=== PATIENT | male | born 1940 | race Caucasian/White ===

== ENCOUNTER 2019-01-26 06:31 | Inpatient (IN) | payer MEDICARE ==
[2019-01-26 07:05] LABS: #Basophils 0.1 thou/uL (0.0-0.2); #Eosinphils 0.4 thou/uL (0.0-0.7); #Lymphocytes 2.6 thou/uL (1.20-3.40); #Neutrophils 6.6 thou/uL (1.40-6.50); %Eosinophils 3.8 % (0.0-10.0); %Lymphocytes 24.4 % (21.0-51.0); %Monocytes 8.9 % (0.0-10.0); %Neutrophils 61.9 % (42.0-75.0); Hemoglobin 14.1 g/dL (14.0-18.0); Mean Corpuscular Hemoglobin 30.3 pg (27.0-31.0); Mean Corpuscular Volume 91.9 fL (78.0-98.0); Mean Platelet Volume 9.3 fL (7.4-10.4); Platelet Count 131 thou/uL (130-400); Red Blood Cell (RBC) Count 4.65 mill/uL (4.70-6.10); White Blood Cell (WBC) Count 10.7 thou/uL (4.8-10.8)
[2019-01-26] MEDS ORDERED: Aspirin Chewable 81 MG TAB ONE (07:10)
[2019-01-26] MEDS ORDERED: Nitroglycerin 2% Ointment 1 INCH/1 GM Packet ONE (07:10)
[2019-01-26 07:28] LABS: ALT (SGPT) 21 U/L (8-55); AST (SGOT) 18 U/L (5-34); Albumin 4.4 g/dL (3.4-4.8); Alkaline Phosphatase 56 U/L (40-150); Anion Gap 14 mmol/L (10-20); BUN (Urea Nitrogen) 17 mg/dL (8.4-25.7); Bilirubin, Total 0.6 mg/dL (0.2-1.2); CK (CPK) 111 U/L (30-200); Calc. Creatinine Clearance 0 mL/min (70-130); Calcium 9.5 mg/dL (7.8-10.44); Carbon Dioxide 24 mmol/L (23-31); Chloride 107 mmol/L (98-107); Estimated GFR-MDRD 54; Globulin 3.3 g/dL (2.4-3.5); Glucose 100 mg/dL (83-110); Lipase 29 U/L (8-78); Potassium 3.6 mmol/L (3.5-5.1); Protein, Total 7.7 g/dL (5.8-8.1); Sodium 141 mmol/L (136-145)
--- NOTE | 2019-01-26 07:35 | RAD ---
FRadiograph chest one view: HISTORY: 79-year-old male with chest pain COMPARISON: None FINDINGS: Mild fluid in pulmonary septa at the mid and lower lung zones. Cardiac size at upper limits of normal or mildly enlarged. Signs of previous CABG. Left subclavian multilead pacemaker. No pneumothorax or consolidation. IMPRESSION: Mild pulmonary interstitial edema, evidence for mild congestive heart failure.
[2019-01-26] MEDS ORDERED: Enoxaparin Sodium 80 MG/0.8 ML SYRINGE ONE (07:43)
[2019-01-26 07:53] LABS: CKMB 5.7 ng/mL (0-6.6)
[2019-01-26] MEDS ORDERED: Ondansetron PF 4 MG/2 ML Vial IVP PRN (09:55)
[2019-01-26] MEDS ORDERED: Ondansetron ODT 4 MG TAB PO PRN (09:56)
[2019-01-26] MEDS ORDERED: Sodium Chloride 0.9% 1,000 ML IV SCH (10:00)
[2019-01-26 10:19] LABS: Troponin I 0.505 ng/mL (< 0.028)
[2019-01-26 10:28] VITALS: BMI 26.4
[2019-01-26] MEDS ORDERED: Enoxaparin Sodium 80 MG/0.8 ML SYRINGE SC SCH ×2 (10:53→11:15)
[2019-01-26] MEDS ORDERED: Nitroglycerin 0.4 MG TAB (25 Tab Bottle) SL PRN (10:54)
[2019-01-26] MEDS ORDERED: Dextrose 5% in Water 1,000 ML IV PRN (10:57)
[2019-01-26] MEDS ORDERED: Dextrose 50% Abboject 50 ML SYRINGE SLOW IVP PRN (10:57)
[2019-01-26] MEDS ORDERED: HumaLOG 300 UNITS/3 ML VIAL SC PRN (10:57)
[2019-01-26 12:40] LABS: Hemoglobin A1c 5.6 % (4.0-6.0)
[2019-01-26 13:05] LABS: Troponin I 0.701 ng/mL (< 0.028)
[2019-01-26 17:31] LABS: Hemoglobin 12.9 g/dL (14.0-18.0); Platelet Count 115 thou/uL (130-400)
--- NOTE | 2019-01-26 17:33 | HP ---
CHIEF COMPLAINT: Chest pain. HISTORY OF PRESENT ILLNESS: The patient is a very pleasant 79-year-old male with a past medical history of CAD, hypertension, hyperlipidemia, diabetes, who presents to the hospital with complaints of chest pain. The patient states that for the past few months to years, he has been having chest pressure on walking about 3/4 of a mile. 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 The patient stated that his stress test was done about 5 to 6 months ago, stated that he did have some blockage and recommended medical management. This is per patient and I do not have his stress test results to review. The patient states that for the past few days, he has been having significant chest tightness on exertion which is relieved with rest. The patient denies any radiation of his chest pressure. The patient then states that last night, he woke up with chest tightness which concerned him. He took nitroglycerin and took some Plavix, and then came into the ER for further evaluation. The patient stated that his chest tightness improved when he presented to the hospital. He denies any fevers or chills. He denies any shortness of breath and also prior to coming to the hospital, the patient has been having chest pain on minimal exertion that is walking in his home, which is not usual. PAST MEDICAL HISTORY: 1. He has a history of CAD. 2. Diabetes type 2. 3. Hyperlipidemia. 4. Hypertension. 5. GERD. PAST SURGICAL HISTORY: He has had a tonsillectomy, hernia repair, hemorrhoids. He has had a pacemaker for arrhythmia in 1995. He has also had CABG in 2000 and he has had 4 stents. ALLERGIES: HE HAS NO KNOWN ALLERGIES. MEDICATIONS: As the following. He is on: 1. Clopidogrel 75 mg daily. 2. Atenolol. 3. Metformin. 4. Glipizide. 5. Benazepril. 6. Aspirin 81 mg. 7. Simvastatin. 8. Amlodipine. 9. Tamsulosin. 10. Isosorbide. 11. Nexium. SOCIAL HISTORY: He has no alcohol use, tobacco use, or drug use. He is a full code. The patient lives with his . FAMILY HISTORY: Father had MA at the age of 66. Mother has been pretty healthy. Brother had an MA at the age of 81. REVIEW OF SYSTEMS: All negative except for the ones mentioned above in the HPI. PHYSICAL EXAMINATION: VITAL SIGNS: 97.7, 74, 18 respiration, 97% on room air, 131/71. GENERAL: He is awake, alert, and oriented x3. Does not appear in any distress. HEENT: Normocephalic, atraumatic. No lymphadenopathy noted. Pupils are equal and reactive to light. CV: S1 and S2 present. No murmurs, rubs, or gallops. He does have a pacemaker. His pacemaker site appears to be stable. LUNGS: Clear to auscultation. No rhonchi or wheezes noted. ABDOMEN: Soft, nontender. Bowel sounds are present x2. EXTREMITIES: No edema. Pedal pulses are present x2. NEUROLOGIC: No focal deficits noted. SKIN: No cuts or lesions noted. LABORATORY RESULTS: As of the following; sodium of 141, potassium of 3.6, BUN of 17, creatinine 1.28. His CK is 5.7, troponin initially was 0.3. CBC; WBCs of 10.7, hemoglobin of 14.1, hematocrit of 42.7, and platelets of 131. His EKG indicated a paced rhythm. His chest x-ray did indicate just mild pulmonary interstitial edema. His BNP was mildly elevated at 210. ASSESSMENT AND PLAN: The patient is an 79-year-old male, who presents to the hospital with complaints of chest pain. 1. Unstable angina. The patient has elevated troponins. He did have significant pain initially on minimal exertion. However, this time, he had pain at rest. We will start the patient on Lovenox and also Plavix and statin. We will check a lipid panel in the morning. We will check his hemoglobin A1c. Cardiology has been notified. We will keep the patient n.p.o. for possible cardiac cath today. If they decide not to, we will feed him and keep n.p.o. after midnight. 2. History of hypertension. We will continue his home medications. 3. History of diabetes. We will put him on Accu-Cheks before meals and at bedtime, and put him on a sliding scale. We will hold his metformin and glyburide. 4. Reflux. We will continue his home medications. 5. Deep venous thrombosis prophylaxis. The patient is already on subcu Lovenox. Job ID: [id number]
--- NOTE | 2019-01-26 20:54 | CON ---
DATE OF CONSULTATION: 01/26/2019 REASON FOR CONSULTATION: Unstable angina. PRIMARY PADDER CUSHION: Dr. Jacky Mckinley. HISTORY OF PRESENT ILLNESS: Mr. Floyd is a very pleasant 79-year-old gentleman with a previous history of CAD, status post bypass surgery in 2000. He states over the last several weeks, he has had increased angina with less exertion. He states he could walk 300 yards and now has difficulty walking less than 100 yards. He has been treated with Ranexa in addition to Imdur, but continues to have accelerating symptoms. He presented with the above. PAST MEDICAL HISTORY: 1. Diabetes mellitus. 2. Hyperlipidemia. 3. Hypertension. 4. Acid reflux. 5. CAD. 6. Pacemaker. ALLERGIES: NONE. MEDICATIONS: Include; 1. Plavix. 2. Atenolol. 3. Metformin. 4. Glipizide. 5. Benazepril. 6. Aspirin. 7. Simvastatin. 8. Amlodipine. 9. Tamsulosin. 10. Isosorbide. 11. Nexium. SOCIAL HISTORY: No current tobacco or alcohol use. REVIEW OF SYSTEMS: A 10-point review of systems is reviewed and as above, otherwise negative. PHYSICAL EXAMINATION: GENERAL: Patient is a pleasant male who is in no acute distress. The patient appears their stated age. VITAL SIGNS: Blood pressure 130/78, pulse 63, temperature 97.8. NEUROLOGIC: The patient is alert and oriented x3 with no focal neurologic deficits. HEENT: Sclerae without icterus. Mouth has moist mucous membranes with normal pallor. NECK: No JVD. Carotid upstroke brisk. No bruits bilaterally. LUNGS: Clear to auscultation with unlabored respirations. BACK: No scoliosis or kyphosis. CARDIAC: Regular rate and rhythm with normal S1 and S2. No S3 or S4 noted. No significant rubs, murmurs, thrills, or gallops noted throughout the precordium. PMI is not displaced. There is no parasternal heave. ABDOMEN: Soft, nontender, nondistended. No peritoneal signs present. No hepatosplenomegaly. No abnormal striae. EXTREMITIES: 2+ femoral and 2+ dorsalis pedis pulses. No cyanosis, clubbing, or edema. SKIN: No gross abnormalities. PERTINENT LABORATORY DATA: Hemoglobin 12.9, hematocrit 39.8. Peak troponin 0.7. IMPRESSION: 1. Unstable angina. 2. Coronary artery disease. 3. Status post bypass surgery. RECOMMENDATIONS: At this point, the patient has failed medical therapy. His symptoms suggest unstable angina. His angio was performed in 2000. We will try to obtain records. I discussed the procedure in full detail with Mr. Floyd. Risks included, but not limited to the following: I discussed the procedure in full detail with the patient. The risks of the procedure were also discussed. The risks of the procedure include but are not limited to the following: , stroke, [place], need for emergency surgery, loss of limb, bleeding, and infection, as well as a reaction to the dye causing kidney failure and needing long-term dialysis. I also discussed the risks of PCI to include all of the above including coronary dissection and perforation in addition to acute stent thrombosis and restenosis. All questions were answered. I also discussed drug-coated stent placement. There were no contraindications. We will proceed if needed. Further recommendations pending the above. Job ID: [id number]
[2019-01-26] MEDS: Atorvastatin Calcium 40 MG TAB PO SCH (21:27)
[2019-01-26] MEDS: Enoxaparin Sodium 80 MG/0.8 ML SYRINGE SC SCH (21:33)
[2019-01-27 06:09] LABS: #Basophils 0.1 thou/uL (0.0-0.2); #Eosinphils 0.3 thou/uL (0.0-0.7); #Lymphocytes 2.4 thou/uL (1.20-3.40); #Monocytes 1.1 thou/uL (0.11-0.59); #Neutrophils 6.8 thou/uL (1.40-6.50); %Basophils 0.7 % (0.0-1.0); %Eosinophils 2.4 % (0.0-10.0); %Lymphocytes 22.3 % (21.0-51.0); %Monocytes 10.5 % (0.0-10.0); %Neutrophils 64.1 % (42.0-75.0); Hemoglobin 13.3 g/dL (14.0-18.0); Mean Corpuscular HGB CONC 32.9 g/dL (32.0-36.0); Mean Corpuscular Hemoglobin 29.6 pg (27.0-31.0); Mean Corpuscular Volume 90.1 fL (78.0-98.0); Mean Platelet Volume 10.1 fL (7.4-10.4); Platelet Count 122 thou/uL (130-400); RBC Distribution Width 12.9 % (11.5-14.5); Red Blood Cell (RBC) Count 4.51 mill/uL (4.70-6.10); White Blood Cell (WBC) Count 10.5 thou/uL (4.8-10.8)
[2019-01-27 06:34] LABS: Anion Gap 14 mmol/L (10-20); BUN (Urea Nitrogen) 12 mg/dL (8.4-25.7); Calc. Creatinine Clearance 65 mL/min (70-130); Calcium 9.4 mg/dL (7.8-10.44); Carbon Dioxide 23 mmol/L (23-31); Cardiac Risk 3.8 (Less than 4.5); Chloride 107 mmol/L (98-107); Cholesterol 122 mg/dl (< 200 Desired); Estimated GFR-MDRD 69; Glucose 102 mg/dL (83-110); HDL Cholesterol 32 mg/dL (>60 Neg Risk); LDL Cholesterol, Calculated 59 mg/dL; Potassium 3.7 mmol/L (3.5-5.1); Sodium 140 mmol/L (136-145); Triglycerides 155 mg/dL (Less than 150)
--- NOTE | 2019-01-27 08:11 | PDOC.PN ---
- Subjective Encounter Start Date: 01/27/19 Encounter Start Time: 08:09 Subjective: 79 y/o male admitted with acute NSTEMI. Currently chest pain free. -: denied palpitation, nausea, SOB or vomiting - Objective Vital Signs & Weight: Vital Signs (12 hours) Temp Pulse Resp BP Pulse Ox 01/27/19 07:42 97.6 F 80 18 159/93 H 96 01/27/19 05:04 98.4 F 72 18 166/78 H 93 L 01/26/19 21:26 97.6 F 65 16 156/75 H 96 Weight Weight 176 lb 2 oz I&O: 01/26/19 01/27/19 01/28/19 06:59 06:59 06:59 Intake Total 690 Output Total 350 Balance 340 Result Diagrams: 01/27/19 05:09 01/27/19 05:09 Additional Labs: Accuchecks 01/27/19 01/26/19 01/26/19 05:46 20:44 16:27 POC Glucose 117 H 172 H 68 L 01/26/19 11:26 POC Glucose 86 Phys Exam - Physical Examination Constitutional: NAD HEENT: PERRLA, moist MMs Neck: no JVD, supple Respiratory: no wheezing, no rhonchi, clear to auscultation bilateral Cardiovascular: RRR Gastrointestinal: soft, non-tender, no distention Musculoskeletal: no edema, pulses present Neurological: non-focal, moves all 4 limbs Psychiatric: A&O x 3 Dx/Plan (1) Acute non-ST elevation myocardial infarction (NSTEMI) Code(s): I21.4 - NON-ST ELEVATION (NSTEMI) MYOCARDIAL INFARCTION Status: Acute (2) CAD (coronary artery disease) Code(s): I25.10 - ATHSCL HEART DISEASE OF [place] CORONARY ARTERY W/O ANG PCTRS Status: Acute (3) HTN (hypertension) Code(s): I10 - ESSENTIAL (PRIMARY) HYPERTENSION Status: Acute (4) Type 2 diabetes mellitus Status: Acute (5) BPH (benign prostatic hyperplasia) Code(s): N40.0 - BENIGN PROSTATIC HYPERPLASIA WITHOUT LOWER URINRY TRACT SYMP Status: Acute (6) HLD (hyperlipidemia) Code(s): E78.5 - HYPERLIPIDEMIA, UNSPECIFIED Status: Acute - Plan Continue antithrombotoc therapy with lovenox ASA and plavix. -: Restart flomax, PPI, atenolol and imdur. Hold ALLAN damian -: Diet as tolerated -: For cardiac cath tomorrow. * .
[2019-01-27] MEDS: Atenolol 50 MG TAB PO SCH (08:46)
[2019-01-27] MEDS: Clopidogrel Bisulfate 75 MG TAB PO SCH (08:47)
[2019-01-27] MEDS: Enoxaparin Sodium 80 MG/0.8 ML SYRINGE SC SCH ×2 (08:47→21:17)
[2019-01-27] MEDS: Tamsulosin HCl 0.4 MG CAP PO SCH (08:47)
[2019-01-27] MEDS ORDERED: Non-Formulary Item 1 EACH (Atenolol [Atenolol] 100 MG) PO SCH (09:00)
[2019-01-27] MEDS ORDERED: Communication Order-Pharmacy FS SCH (10:15)
[2019-01-27 11:21] LABS: Troponin I 0.705 ng/mL (< 0.028)
--- NOTE | 2019-01-27 13:45 | PDOC.CTH ---
Cardiology Progress Note - Subjective No complaints. Denies any CP, SOB or SHAH - Objective Vital Signs Temp Pulse Resp BP Pulse Ox 01/27/19 11:50 97.9 F 63 18 107/59 L 96 01/27/19 08:46 80 01/27/19 07:42 97.6 F 80 18 159/93 H 96 01/27/19 05:04 98.4 F 72 18 166/78 H 93 L Weight 176 lb 2 oz 01/26/19 01/27/19 01/28/19 06:59 06:59 06:59 Intake Total 690 Output Total 350 Balance 340 - Physical Examination General/Neuro: alert & oriented x3 Neck: no JVD present Lungs: CTA Heart: RRR Abdomen: NT/ND - Telemetry Telemetry Rhythm: paced - Labs Result Diagrams: 01/27/19 05:09 01/27/19 05:09 Troponin/CKMB CK-MB (CK-2) 5.7 ng/mL (0-6.6) 01/26/19 06:55 Troponin I 0.705 ng/mL (< 0.028) H* 01/27/19 09:21 - Assessment/Plan 1. UA 2. NSTEMI - 1 3. CAD s/p CABG 4. HTN 5. HLD 6. DM-II 7. s/p dual-chamber pacer Stable. Plan for [facility] [place] tomorrow. All questions answered.
[2019-01-27] MEDS: Atorvastatin Calcium 40 MG TAB PO SCH (21:18)
[2019-01-28] MEDS: Tamsulosin HCl 0.4 MG CAP PO SCH (05:59)
[2019-01-28] MEDS: Clopidogrel Bisulfate 75 MG TAB PO SCH (05:59)
[2019-01-28] MEDS: Atenolol 50 MG TAB PO SCH (05:59)
[2019-01-28] MEDS ORDERED: Diazepam 5 MG TAB PO SCH (06:00)
--- NOTE | 2019-01-28 07:39 | PDOC.PN ---
- Subjective Encounter Start Date: 01/28/19 Encounter Start Time: 07:37 Subjective: Remained chest pain free. -: For cardiac cath today. - Objective Vital Signs & Weight: Vital Signs (12 hours) Temp Pulse Resp BP BP Pulse Ox 01/28/19 05:59 62 145/70 H 01/28/19 04:00 98.2 F 62 19 145/70 H 96 01/28/19 03:07 94 16 111/67 01/27/19 19:44 95 01/27/19 19:40 98.6 F 62 16 131/62 95 Weight Weight 175 lb I&O: 01/27/19 01/28/19 01/29/19 06:59 06:59 06:59 Intake Total 690 850 Output Total 350 250 Balance 340 600 Result Diagrams: 01/27/19 05:09 01/27/19 05:09 Additional Labs: Accuchecks 01/28/19 01/27/19 01/27/19 06:34 17:29 11:05 POC Glucose 120 H 125 H 136 H Phys Exam - Physical Examination Constitutional: NAD HEENT: PERRLA, moist MMs Neck: no JVD, supple Respiratory: no wheezing, no rales, no rhonchi, clear to auscultation bilateral Cardiovascular: RRR Gastrointestinal: soft, non-tender, no distention Musculoskeletal: no edema, pulses present Neurological: non-focal, moves all 4 limbs Psychiatric: A&O x 3 Dx/Plan (1) Acute non-ST elevation myocardial infarction (NSTEMI) Code(s): I21.4 - NON-ST ELEVATION (NSTEMI) MYOCARDIAL INFARCTION Status: Acute (2) CAD (coronary artery disease) Code(s): I25.10 - ATHSCL HEART DISEASE OF [place] CORONARY ARTERY W/O ANG PCTRS Status: Acute (3) HTN (hypertension) Code(s): I10 - ESSENTIAL (PRIMARY) HYPERTENSION Status: Acute (4) Type 2 diabetes mellitus Status: Acute (5) BPH (benign prostatic hyperplasia) Code(s): N40.0 - BENIGN PROSTATIC HYPERPLASIA WITHOUT LOWER URINRY TRACT SYMP Status: Acute (6) HLD (hyperlipidemia) Code(s): E78.5 - HYPERLIPIDEMIA, UNSPECIFIED Status: Acute (7) CKD (chronic kidney disease), stage III Code(s): N18.3 - CHRONIC KIDNEY DISEASE, STAGE 3 (MODERATE) Status: Acute (8) GERD (gastroesophageal reflux disease) Code(s): K21.9 - GASTRO-ESOPHAGEAL REFLUX DISEASE WITHOUT ESOPHAGITIS Status: Acute - Plan Start IV hydration for ASHLEY prophylaxis. -: Continue other medication including antithrombotic therapy -: Restart PPI -: Monitor renal function * .
[2019-01-28] MEDS ORDERED: Sodium Chloride 0.9% 1,000 ML IV SCH ×2 (07:45→10:00)
[2019-01-28 08:14] LABS: Anion Gap 12 mmol/L (10-20); BUN (Urea Nitrogen) 11 mg/dL (8.4-25.7); Calc. Creatinine Clearance 60 mL/min (70-130); Calcium 8.9 mg/dL (7.8-10.44); Carbon Dioxide 25 mmol/L (23-31); Chloride 107 mmol/L (98-107); Estimated GFR-MDRD 64; Glucose 116 mg/dL (83-110); Potassium 4.1 mmol/L (3.5-5.1); Sodium 140 mmol/L (136-145)
[2019-01-28] MEDS ORDERED: Heparin 10,000 UNITS/1 ML VIAL ONE (08:23)
[2019-01-28] MEDS ORDERED: Verapamil 5 MG/2 ML VIAL ONE (08:23)
[2019-01-28] MEDS ORDERED: Nitroglycerin 100MG/250ML BOT 250 ML ONE (08:23)
[2019-01-28] MEDS ORDERED: Adenosine 6 MG/2 ML VIAL ONE (08:56)
[2019-01-28] MEDS ORDERED: Fentanyl 100 MCG/2 ML VIAL ONE (08:56)
[2019-01-28] MEDS ORDERED: Midazolam HCl 2 mg/2 ml Vial ONE (08:56)
[2019-01-28] MEDS ORDERED: Clopidogrel Bisulfate 300 MG TAB ONE (09:23)
[2019-01-28] MEDS ORDERED: Iopamidol 370 76% 100 ML VIAL ONE (10:12)
[2019-01-28] MEDS ORDERED: Morphine 2 MG/ML SYRINGE ONE (10:34)
[2019-01-28] MEDS ORDERED: Morphine 2 MG/ML SYRINGE SLOW IVP PRN (10:44)
[2019-01-28] MEDS ORDERED: Ondansetron PF 4 MG/2 ML Vial ONE (11:56)
--- NOTE | 2019-01-28 13:37 | EKG ---
Test Reason : Blood Pressure : / mmHG Vent. Rate : 061 BPM Atrial Rate : 300 BPM P-R Int : 000 ms QRS Dur : 176 ms QT Int : 484 ms P-R-T Axes : 000 -32 148 degrees QTc Int : 487 ms AV sequential or dual chamber electronic pacemaker When compared with ECG of 26-JAN-2019 06:39, (Unconfirmed) Vent. rate has decreased BY 2 BPM Confirmed by GREG NAVAS, . SAlexia ([id number]) on 01/28/2019 1:36:29 PM Referred By: DENISA Confirmed By:DR. Jordyn GARZA MD
[2019-01-28] MEDS: Atorvastatin Calcium 40 MG TAB PO SCH (21:14)
[2019-01-29 07:03] LABS: #Basophils 0.1 thou/uL (0.0-0.2); #Eosinphils 0.3 thou/uL (0.0-0.7); #Lymphocytes 2.3 thou/uL (1.20-3.40); #Monocytes 1.7 thou/uL (0.11-0.59); %Basophils 0.7 % (0.0-1.0); %Eosinophils 2.4 % (0.0-10.0); %Lymphocytes 20.3 % (21.0-51.0); %Monocytes 14.9 % (0.0-10.0); %Neutrophils 61.8 % (42.0-75.0); Hemoglobin 12.5 g/dL (14.0-18.0); Mean Corpuscular HGB CONC 32.8 g/dL (32.0-36.0); Mean Corpuscular Hemoglobin 30.1 pg (27.0-31.0); Mean Corpuscular Volume 91.6 fL (78.0-98.0); Mean Platelet Volume 9.5 fL (7.4-10.4); Platelet Count 116 thou/uL (130-400); RBC Distribution Width 12.9 % (11.5-14.5); Red Blood Cell (RBC) Count 4.17 mill/uL (4.70-6.10); White Blood Cell (WBC) Count 11.4 thou/uL (4.8-10.8)
[2019-01-29 07:15] LABS: ALT (SGPT) 15 U/L (8-55); AST (SGOT) 22 U/L (5-34); Albumin 3.7 g/dL (3.4-4.8); Alkaline Phosphatase 49 U/L (40-150); Anion Gap 13 mmol/L (10-20); BUN (Urea Nitrogen) 11 mg/dL (8.4-25.7); Bilirubin, Total 1.1 mg/dL (0.2-1.2); Calc. Creatinine Clearance 64 mL/min (70-130); Calcium 8.8 mg/dL (7.8-10.44); Carbon Dioxide 22 mmol/L (23-31); Chloride 108 mmol/L (98-107); Estimated GFR-MDRD 69; Globulin 2.8 g/dL (2.4-3.5); Glucose 114 mg/dL (83-110); Potassium 3.6 mmol/L (3.5-5.1); Protein, Total 6.5 g/dL (5.8-8.1); Sodium 139 mmol/L (136-145)
[2019-01-29] MEDS: Atenolol 50 MG TAB PO SCH (08:42)
[2019-01-29] MEDS: Clopidogrel Bisulfate 75 MG TAB PO SCH (08:42)
[2019-01-29] MEDS: Tamsulosin HCl 0.4 MG CAP PO SCH (08:42)
--- NOTE | 2019-01-29 08:45 | PDOC.CTH ---
Cardiology Progress Note - Subjective Doing well. No complaints. Feels great. - Objective Vital Signs Temp Pulse Resp BP Pulse Ox 01/29/19 07:22 99.4 F 63 18 167/72 H 96 01/29/19 04:00 98.8 F 72 18 156/76 H 92 L Weight 175 lb 01/28/19 01/29/19 01/30/19 06:59 06:59 06:59 Intake Total 850 1480 Output Total 250 300 Balance 600 1180 - Physical Examination General/Neuro: alert & oriented x3, NAD Neck: carotid US brisk, no JVD present Lungs: CTA, unlabored respirations Heart: PMI normal, RRR Abdomen: NT/ND, soft Extremities: + edema B - Telemetry Telemetry Rhythm: SR - Labs Result Diagrams: 01/29/19 06:18 01/29/19 06:18 Troponin/CKMB CK-MB (CK-2) 5.7 ng/mL (0-6.6) 01/26/19 06:55 Troponin I 0.705 ng/mL (< 0.028) H* 01/27/19 09:21 - Assessment/Plan Severe CAD s/p stent to SVG to OMB Doing well Home on BB, statin, ASA, plavix fu with Dr. Mckinley in 1-2 weeks
[2019-01-29] MEDS ORDERED: Amlodipine 10 MG TAB PO SCH (09:00)
[2019-01-29 13:30] VITALS: BP 126/65; TEMP 99
--- NOTE | 2019-01-29 22:31 | EKG ---
Test Reason : Blood Pressure : / mmHG Vent. Rate : 061 BPM Atrial Rate : 061 BPM P-R Int : 120 ms QRS Dur : 180 ms QT Int : 484 ms P-R-T Axes : 062 -81 082 degrees QTc Int : 487 ms AV sequential or dual chamber electronic pacemaker When compared with ECG of 28-JAN-2019 10:51, (Unconfirmed) No significant change was found Confirmed by Liliana BROOKS ([id number]) on 01/29/2019 10:31:20 PM Referred By: EMILIANO Confirmed By:Liliana BROOKS
== END 2019-01-29 13:35 | disposition home or self-care (01) | DRG 247 ==
LOC: ERS 06:31 → 2NO 09:47
PROVIDERS: ADMIT Internal Medicine; ATTEND Internal Medicine
PROC: B2111ZZ Fluoroscopy of Multiple Coronary Arteries using Low Osmolar Contrast (ICD-10-PCS; principal; 2019-01-26)
PROC: 027034Z Dilation of Coronary Artery, One Artery with Drug-eluting Intraluminal Device, Percutaneous Approach (ICD-10-PCS; 2019-01-26)
PROC: 4A023N7 Measurement of Cardiac Sampling and Pressure, Left Heart, Percutaneous Approach (ICD-10-PCS; 2019-01-26)
DX: I21.4 Non-ST elevation (NSTEMI) myocardial infarction (principal); I25.110 Atherosclerotic heart disease of native coronary artery with unstable angina pectoris; E11.22 Type 2 diabetes mellitus with diabetic chronic kidney disease; I12.9 Hypertensive chronic kidney disease with stage 1 through stage 4 chronic kidney disease, or unspecified chronic kidney disease; N18.3 Chronic kidney disease, stage 3 (moderate); E78.5 Hyperlipidemia, unspecified; Z95.0 Presence of cardiac pacemaker; K21.9 Gastro-esophageal reflux disease without esophagitis; Z95.1 Presence of aortocoronary bypass graft; N40.0 Benign prostatic hyperplasia without lower urinary tract symptoms
CPT/HCPCS: 36415; 36416; 71045; 76942; 80048; 80053; 80061; 82550; 82553; 83036; 83690; 83880; 84484; 85025; 85347; 92928; 93005; 93010; 93455; 93798; 96372; 99152; C1725; C1769; C1874; C1887; C9600; J0153; J1644; J1650; J2250; J2270; J2405; J3010; Q9967

== ENCOUNTER 2019-07-07 11:19 | Emergency (ER) | payer MEDICARE ==
[2019-07-07] MEDS ORDERED: Diazepam 10 MG/2 ML SYRINGE ONE (12:06)
[2019-07-07] MEDS ORDERED: Ondansetron PF 4 MG/2 ML Vial ONE (12:07)
[2019-07-07 12:35] LABS: #Basophils 0.1 thou/uL (0.0-0.2); #Lymphocytes 1.8 thou/uL (1.20-3.40); #Monocytes 0.8 thou/uL (0.11-0.59); #Neutrophils 7.5 thou/uL (1.40-6.50); %Basophils 0.8 % (0.0-1.0); %Eosinophils 0.3 % (0.0-10.0); %Lymphocytes 17.8 % (21.0-51.0); %Monocytes 7.9 % (0.0-10.0); %Neutrophils 73.2 % (42.0-75.0); Mean Corpuscular HGB CONC 34.4 g/dL (32.0-36.0); Mean Corpuscular Hemoglobin 31.5 pg (27.0-31.0); Mean Corpuscular Volume 91.6 fL (78.0-98.0); Mean Platelet Volume 8.9 fL (7.4-10.4); Platelet Count 127 thou/uL (130-400); RBC Distribution Width 13.1 % (11.5-14.5); Red Blood Cell (RBC) Count 4.46 mill/uL (4.70-6.10); White Blood Cell (WBC) Count 10.3 thou/uL (4.8-10.8)
[2019-07-07 13:06] LABS: ALT (SGPT) 16 U/L (8-55); AST (SGOT) 17 U/L (5-34); Albumin 4.1 g/dL (3.4-4.8); Alkaline Phosphatase 51 U/L (40-150); Anion Gap 15 mmol/L (10-20); BUN (Urea Nitrogen) 12 mg/dL (8.4-25.7); Bilirubin, Total 0.6 mg/dL (0.2-1.2); Calc. Creatinine Clearance 0 mL/min (70-130); Calcium 8.8 mg/dL (7.8-10.44); Carbon Dioxide 22 mmol/L (23-31); Chloride 104 mmol/L (98-107); Estimated GFR-MDRD 66; Globulin 2.4 g/dL (2.4-3.5); Glucose 154 mg/dL (83-110); Lipase 23 U/L (8-78); Protein, Total 6.5 g/dL (5.8-8.1); Sodium 137 mmol/L (136-145)
[2019-07-07 13:19] LABS: Bilirubin Negative (Negative); Blood, Urine Negative (Negative); Clarity Clear (Clear); Glucose, Urine (Dipstick) Normal (Negative); Leukocyte Negative Leu/uL (Negative); Nitrite Negative (Negative); Protein, Urine (Dipstick) 20 mg/dL (Neg-Trace); Urobilinogen Normal mg/dL (Less than 2)
== END 2019-07-07 13:40 | disposition home or self-care (01) ==
LOC: ERS 11:19
DX: H81.10 Benign paroxysmal vertigo, unspecified ear (principal); E11.9 Type 2 diabetes mellitus without complications; E78.5 Hyperlipidemia, unspecified; I10 Essential (primary) hypertension; Z79.899 Other long term (current) drug therapy; Z79.84 Long term (current) use of oral hypoglycemic drugs
CPT/HCPCS: 80053; 81003; 83690; 84484; 85025; 93005; 96361; 96374; 96375; J2405; J3360